=== PATIENT | female | born 1985 | race Caucasian/White ===

== ENCOUNTER 2023-07-30 09:15 | Day surgery (SDC) | payer SELFPAY ==
[2023-07-28 10:39] VITALS: BMI 19.3
[2023-07-30] MEDS ORDERED: BUPIVACAINE HCL/PF 2.5 MG/ML - 30 ML VIAL IJ ONE (10:17)
[2023-07-30] MEDS ORDERED: LIDOCAINE 1%/EPI 1:100000 (20 ML MULTI DOSE VIAL) ONE (10:17)
[2023-07-30] MEDS ORDERED: SCOPOLAMINE HYDROBROMIDE 1 PATCH PATCH.TD72 ONE (11:48)
[2023-07-30] MEDS ORDERED: MIDAZOLAM HCL 2 MG/2 ML SINGLE DOSE VIAL ONE ×2 (11:48→12:18)
[2023-07-30] MEDS ORDERED: ACETAMINOPHEN INJECTION 100 ML IVPB ONE (11:48)
[2023-07-30] MEDS ORDERED: PROPOFOL 20 ML ONE ×2 (11:53→13:24)
[2023-07-30] MEDS ORDERED: PROPOFOL 80 ML ONE (12:11)
[2023-07-30] MEDS ORDERED: DEXAMETHASONE SOD PHOSPHATE 4 MG/1 ML VIAL ONE ×2 (12:14)
[2023-07-30] MEDS ORDERED: ceFAZolin SODIUM 1 GM VIAL ONE (12:14)
[2023-07-30] MEDS ORDERED: ROCURONIUM BROMIDE 50 MG/5 ML SYRINGE ONE (12:17)
[2023-07-30] MEDS ORDERED: ONDANSETRON 4 MG/2 ML VIAL ONE ×2 (12:24)
[2023-07-30] MEDS ORDERED: KETOROLAC TROMETHAMINE 30 MG/1 ML VIAL ONE (12:24)
[2023-07-30] MEDS ORDERED: SUGAMMADEX SODIUM 200 MG/2 ML VIAL ONE (12:24)
[2023-07-30] MEDS ORDERED: oxyCODONE HCL 5 MG TABLET PO PRN ×2 (14:27)
[2023-07-30] MEDS ORDERED: ONDANSETRON 4 MG/2 ML VIAL IVPUSH PRN (14:27)
[2023-07-30] MEDS ORDERED: LACTATED RINGERS SOLUTION 1,000 ML IV SCH (14:30)
[2023-07-30 15:47] VITALS: RESP 16; TEMP 97.8
[2023-07-30 15:52] VITALS: BP 95/59; PULSE 60
== END 2023-07-30 15:56 | disposition home or self-care (01) ==
LOC: FASU 09:15
PROVIDERS: ATTEND Surgery
CPT/HCPCS: 81025; 88300-TC; 94760; J0131